=== PATIENT | female | born 1975 | race Two or more races ===

== ENCOUNTER 2024-08-23 20:25 | Emergency (ER) | payer MEDICAID, OTHER ==
[~2024-08-23] VITALS: Ht 160 cm; Wt 82.0 kg
--- NOTE | 2024-08-23 21:01 | ED.PDOC ---
Altered Mental Status HPI Comments 48 y.o female with PMHx of anemia and hypotension, presents to the ED for an evaluation of a syncopal episode earlier today while having dinner. Patient reports going to the bathroom, felt "funny" and when she returned to her table lost consciousness. Patient woke up with left sided jaw and chest pain that is non radiating and constant. No bruising, swelling, lacerations, abrasions, nausea, or vomiting reported. Patient mentions having multiple syncopal episodes before the age of 22, states after 22 until now she only has had 2 syncopal episodes. No previous blood transfusions noted. Chief Complaint: Syncope Time Seen by MD: 20:40 Reviewed Notes: Nurses Notes, Medications, Allergies Allergies: Coded Allergies: NO KNOWN ALLERGIES (Unverified , 08/23/24) Information Source: Patient Mode of Arrival: Ambulatory Severity: Moderate Timing: Hours Duration: Since onset Quality: Decreased Alertness Associated Signs and Symptoms: Other Past Medical History PAST MEDICAL HISTORY: Anemia, Hypotension Past Medical History (Other): syncopal episodes Surgical History: Denies all surgeries APPLICATION SOFTWARE ENGINEER History: Denies all APPLICATION SOFTWARE ENGINEER Hx Family History Family History: Reviewed,noncontributory to illness Social History Smoker: Non-Smoker Alcohol: Denies ETOH Use Drugs: Denies Drug Use Lives In: Home Constitutional: denies: chills, diaphoresis, fatigue, fever, malaise, sweats, weakness, others EENTM: denies: blurred vision, double vision, ear bleeding, ear discharge, ear drainage, ear pain, ear ringing, eye pain, eye redness, hearing loss, mouth pain, mouth swelling, nasal discharge, nose bleeding, nose congestion, nose pain, photophobia, tearing, throat pain, throat swelling, voice changes, others Respiratory: denies: cough, hemoptysis, orthopnea, SOB at rest, shortness of breath, SOB with excertion, stridor, wheezing, others Cardiovascular: reports: lightheadedness, syncope; denies: chest pain, dizzy spells, diaphoresis, Dyspnea on exertion, edema, irregular heart beat, left arm pain, palpitations, PND, others Gastrointestinal: denies: abdomen distended, abdominal pain, blood streaked bowels, constipated, diarrhea, dysphagia, difficulty swallowing, hematemesis, melena, nausea, poor appetite, poor fluid intake, rectal bleeding, rectal pain, vomiting, others Genitourinary: denies: abnormal vagina bleeding, burning, dyspareunia, dysuria, flank pain, frequency, hematuria, incontinence, pain, , vagina discharge, urgency, others Neurological: denies: dizziness, fainting, headache, left sided numbness, left sided weakness, numbness, paresthesia, pre-existing deficit, right sided numbness, right sided weakness, seizure, speech problems, tingling, tremors, weakness, others Musculoskeletal: denies: back pain, gout, joint pain, joint swelling, muscle pain, muscle stiffness, neck pain, others Integumetry: denies: bruises, change in color, change in hair/nails, dryness, laceration, lesions, lumps, rash, wounds, others Allergic/Immunocompromised: denies: Difficulty Healing, Frequent Infections, Hives, Itching, others Hematologic/Lymphatic: denies: anemia, blood clots, easy bleeding, easy bruising, swollen glands, others Endocrine: denies: excessive hunger, excessive sweating, excessive thirst, excessive urination, flushing, intolerance to cold, intolerance to heat, unexplained weight gain, unexplained weight loss, others Psychiatric: denies: anxiety, bipolar disorder, depression, hopeless, panic disorder, schizophrenia, sleepless, suicidal, others All Other Systems: Reviewed and Negative Physical Exam General Appearance: No Apparent Distress, Normal HEENT: Normal ENT Inspection, Pharynx Normal, TMs Normal Neck: Full Range of Motion, Non-Tender, Normal, Normal Inspection Respiratory: Chest Non-Tender, Lungs Clear, No Accessory Muscle Use, No Respiratory Distress, Normal Breath Sounds Cardiovascular: No Edema, No JVD, No Murmur, No Gallop, Normal Peripheral Pulses, Regular Rate/Rhythm Breast Exam: Deferred Gastrointestinal: No Organomegaly, Non Tender, No Pulsatile Mass, Normal Bowel Sounds, Soft Genitalia: Deferred Pelvic: Deferred Rectal: Deferred Extremities: No calf tenderness, Normal capillary refill, Normal inspection, Normal range of motion, Non-tender, No pedal edema Musculoskeletal : Apperance: Normal Neurologic: Alert, 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 Was a procedure done?: No Differential Diagnosis (ALOC) Differential Diagnosis: Dehydration, Hypoglycemia, Hypoxemia, Closed Head Injury, Other (hypotension ) X-Ray, Labs, Meds, VS Vital Signs Date Time Temp Pulse Resp B/P (MAP) Pulse Ox O2 Delivery O2 Flow Rate FiO2 08/23/24 22:57 98.2 86 19 103/64 (77) 100 98.2 08/23/24 22:02 94 18 116/67 (83) 100 08/23/24 21:41 88 17 98 Room Air 08/23/24 21:41 97.9 88 17 76/54 (61) 98 97.9 79/50 (60) 08/23/24 20:29 106 08/23/24 20:25 97.7 103 18 106/70 (82) 98 97.7 Lab Test 08/23/24 21:59 08/23/24 21:50 08/23/24 20:57 08/23/24 20:51 Range/Units Troponin I High Sensitivity < 3 L < 3 L </=34 ng/L Urine Color Yellow Yellow Urine Clarity Turbid H Clear Urine pH 5.5 5.0-9.0 Urine Specific [place] 1.023 1.001-1.035 Urine Protein 1+ H Negative Urine Ketones Negative Negative Urine Blood Negative Negative /uL Urine Nitrite Negative Negative Urine Bilirubin Negative Negative Urine Urobilinogen Normal Negative mg/dL Urine Leukocyte Esterase Negative Negative /uL Urine RBC 6 0 - 4 /hpf Urine Microscopic WBC 5 0-5 /HPF Urine Squamous Epithelial Cells Few <5 /hpf Urine Bacteria None seen None Seen /hpf Urine Hyaline Casts Many 0 - 2 /lpf Urine Mucus Few None Seen Urine Glucose Trace Normal mg/dL White Blood Count 10.9 H 4.4-10.8 10^3/uL Red Blood Count 4.76 4.0-5.20 10^6/uL Hemoglobin 14.6 12.2-16.2 g/dL Hematocrit 42.6 36.0-46.0 % Mean Corpuscular Volume 89.4 80.0-100.0 fL Mean Corpuscular Hemoglobin 30.7 28.0-32.0 pg Mean Corpuscular Hemoglobin Concent 34.4 32.0-36.0 g/dL Red Cell Distribution Width 13.0 11.8-14.3 % Platelet Count 318 140-450 10^3/uL Mean Platelet Volume 8.7 6.9-10.8 fL Neutrophils (%) (Auto) 72.5 37.0-80.0 % Lymphocytes (%) (Auto) 21.3 10.0-50.0 % Monocytes (%) (Auto) 3.4 0.0-12.0 % Eosinophils (%) (Auto) 1.7 0.0-7.0 % Basophils (%) (Auto) 1.1 0.0-2.0 % Neutrophils # (Auto) 7.9 1.6-8.6 10 ^3/uL Lymphocytes # (Auto) 2.3 0.4-5.4 10 ^3/uL Monocytes # (Auto) 0.4 0-1.3 10 ^3/uL Eosinophils # (Auto) 0.2 0-0.8 10 ^3/uL Basophils # (Auto) 0.1 0-0.2 10 ^3/uL Nucleated Red Blood Cells 0.2 % Sodium Level 138 136-145 mmol/L Potassium Level 2.9 L 3.5-5.1 mmol/L Chloride Level 102 98-107 mmol/L Carbon Dioxide Level 21 20-31 mmol/L Anion Gap 15 5-15 Blood Urea Nitrogen 13 9-23 mg/dL Creatinine 0.93 0.550-1.02 mg/dL Glomerular Filtration Rate Calc 77 >90 mL/min BUN/Creatinine Ratio 14.0 10.0-20.0 Serum Glucose 171 H 74-106 mg/dL Calcium Level 9.9 8.7-10.4 mg/dL POC Glucose 192 H 70-106 mg/dl Current Medications Medications (Trade) Dose Ordered Sig/Nikky Route Start Time Stop Time Status Last Admin Sodium Chloride 1,000 ml @ 1,000 mls/hr Q1H ONCE IV 08/23/24 21:30 08/23/24 22:29 DC 08/23/24 21:39 Meclizine HCl (Antivert Tablet) 25 mg ONCE ONCE PO 08/23/24 21:30 08/23/24 21:31 DC 08/23/24 21:39 X-Ray, Labs, Meds, VS Comment Imaging: X-rays and CT scans were reviewed and interpreted by this provider, imaging shows no fractures and no pathological disease. Pending radiology review. Laboratory: Labs reviewed and interpreted by this provider. No significant abnormalities noted. Patient has prior medical visits reviewed. Med reconciliation performed Vital signs reviewed Time of 1ST Reevaluation: 20:57 Reevaluation 1ST: Unchanged Patient Education/Counseling: Diagnosis, Treatment, Prognosis, Need For Follow Up (Follow up in the emergency department in the next 24-48 hours if symptoms worsen. It was advised to follow up with your primary care doctor in the next 3-4 days for further evaluation.) Family Education/Counseling: No Family Present SEPSIS Sepsis Screen Physician Orders Chest Xray 1 View (08/23/24 20:33) Electrocardigram (08/23/24 20:34) Saline Lock (08/23/24 21:29) Potassium Effervesent Tab (Klor-Con/Ef) (08/23/24 23:45) Vital Signs Date Time Temp Pulse Resp B/P (MAP) Pulse Ox O2 Delivery O2 Flow Rate FiO2 08/23/24 22:57 98.2 86 19 103/64 (77) 100 98.2 08/23/24 22:02 94 18 116/67 (83) 100 08/23/24 21:41 88 17 98 Room Air 08/23/24 21:41 97.9 88 17 76/54 (61) 98 97.9 79/50 (60) 08/23/24 20:29 106 08/23/24 20:25 97.7 103 18 106/70 (82) 98 97.7 Laboratory Tests Test 08/23/24 20:57 White Blood Count 10.9 10^3/uL (4.4-10.8) H Medications Medications Dose Ordered Sig/Nikky Route Start Time Stop Time Status Last Admin Dose Admin Meclizine HCl 25 mg ONCE ONCE PO 08/23/24 21:30 08/23/24 21:31 DC 08/23/24 21:39 Sodium Chloride 1,000 ml @ 1,000 mls/hr Q1H ONCE IV 08/23/24 21:30 08/23/24 22:29 DC 08/23/24 21:39 Departure 1 Departure Time of Disposition: 23:46 Impression: Primary Impression: Syncopal episodes Qualified Codes: R55 - Syncope and collapse Additional Impression: Hypokalemia Disposition: 01 HOME / SELF CARE / HOMELESS Condition: Fair Discharged With: Self Critical Care Note Critical Care Time?: No Stability Stability form required: No I personally scribed for SANTOYO,CHRISTOPHER E FURNACE LOADER ([email or web address]) on 08/23/24 at 21:01. Electronically submitted by Kinza Peralta ([facility]). JOSE RAUL SANTOYO Aug 23, 2024 21:01
[2024-08-23 21:30] LABS: Basophils # (auto) 0.1 10 ^3/uL (0-0.2); Basophils % (auto) 1.1 % (0.0-2.0); Eosinophils # (auto) 0.2 10 ^3/uL (0-0.8); Eosinophils % (auto) 1.7 % (0.0-7.0); Hematocrit 42.6 % (36.0-46.0); Hemoglobin 14.6 g/dL (12.2-16.2); Lymphocytes # (auto) 2.3 10 ^3/uL (0.4-5.4); Lymphocytes % (auto) 21.3 % (10.0-50.0); Mean Corpuscular Hemoglobin 30.7 pg (28.0-32.0); Mean Corpuscular Hgb Conc. 34.4 g/dL (32.0-36.0); Mean Corpuscular Volume 89.4 fL (80.0-100.0); Monocytes # (auto) 0.4 10 ^3/uL (0-1.3); Monocytes % (auto) 3.4 % (0.0-12.0); Neutrophils # (auto) 7.9 10 ^3/uL (1.6-8.6); Neutrophils % (auto) 72.5 % (37.0-80.0); Nucleated Red Blood Cells % 0.2 %; Platelet Count (auto) 318 10^3/uL (140-450); Red Blood Cells 4.76 10^6/uL (4.0-5.20); White Blood Cell 10.9 10^3/uL (4.4-10.8)
[2024-08-23 21:31] LABS: Anion Gap 15 (5-15); Carbon Dioxide 21 mmol/L (20-31); Chloride 102 mmol/L (98-107); Sodium 138 mmol/L (136-145)
[2024-08-23 21:32] LABS: Calcium 9.9 mg/dL (8.7-10.4)
[2024-08-23 21:37] LABS: Blood Urea Nitrogen 13 mg/dL (9-23)
[2024-08-23 21:38] LABS: Glucose 171 mg/dL (74-106); Potassium 2.9 mmol/L (3.5-5.1)
[2024-08-23] MEDS: SODIUM CHLORIDE 0.9% 1,000 ML IV ONE (21:39)
[2024-08-23] MEDS: MECLIZINE HCL 25 MG TAB PO ONE (21:39)
--- NOTE | 2024-08-23 21:41 | DVH ---
CHEST RADIOGRAPH REASON FOR EXAM: Chest pain COMPARISON: None TECHNIQUE: One view of the chest is provided FINDINGS: The cardiomediastinal silhouette is within normal limits for technique. There is no focal a irspace disease. There is no significant pleural effusion. No acute bony abnormality is identified. IMPRESSION: No radiographic evidence of acute cardiopulmonary process.
[2024-08-23 22:57] VITALS: BP 103/64; PULSE 86; RESP 19; TEMP 98.2; O2SAT 100
[2024-08-23 23:07] LABS: Urine Bacteria None Seen /hpf (None Seen)
[2024-08-23 23:17] LABS: Urine Blood Negative /uL (Negative); Urine Clarity Turbid (Clear); Urine Color Yellow (Yellow); Urine Hyaline Cast MANY /lpf (0 - 2); Urine Mucus FEW (None Seen); Urine Protein, UAD 1+ (Negative); Urine Specific Gravity 1.023 (1.001-1.035); Urine Squamous Epithelial Cell FEW /hpf (<5); Urine Urobilinogen Normal (Negative); Urine WBC 5 /HPF (0-5); Urine pH 5.5 (5.0-9.0)
[2024-08-24] MEDS: POTASSIUM EFFERVESENT TAB 25 MEQ PO ONE
--- NOTE | 2024-08-24 12:07 | ECG ---
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
== END 2024-08-24 00:13 | disposition home or self-care (01) ==
LOC: ER 20:25
DX: E87.6 Hypokalemia (principal); R55 Syncope and collapse; Z86.2 Personal history of diseases of the blood and blood-forming organs and certain disorders involving the immune mechanism
CPT/HCPCS: 36415; 71045; 80048; 81001; 82947; 84484; 85025; 93005; 96360; 99285; J7030; J8597; 82962